=== PATIENT | female | born 1990 | race Caucasian/White ===

== ENCOUNTER 2016-11-10 14:45 | Emergency (ER) | payer BC ==
[2016-11-10 15:31] VITALS: BP 117/57
--- NOTE | 2016-11-10 15:54 | UC ---
Throat Pain/Nasal Cesar HPI - HPI Summary HPI Summary: ONE WEEK OF COUGH SORE THROAT CONGESTION HOARSE VOICE. NO FEVER. - History of Current Complaint Chief Complaint: UCRespiratory Stated Complaint: SORE THROAT AND COUGH Time Seen by Provider: 11/10/16 15:03 Hx Obtained From: Patient Hx Last Menstrual Period: 10/21/16 Onset/Duration: Gradual Onset, Lasting Weeks, Still Present Severity: Mild Pain Intensity: 0 Pain Scale Used: 0-10 Numeric Cough: Productive Associated Signs & Symptoms: Positive: Hoarseness, Sinus Discomfort, Nasal Discharge - Epiglottits Risk Factors Epiglottis Risk Factors: Negative - Allergies/Home Medications Allergies/Adverse Reactions: Allergies Allergy/AdvReac Type Severity Reaction Status Date / Time No Known Allergies Allergy Verified 11/10/16 15:06 Home Medications: Home Medications Escitalopram Oxalate [Lexapro 20 mg] 20 mg PO DAILY 11/10/16 [History Confirmed 11/10/16] PMH/Surg Hx/FS Hx/Imm Hx Previously Healthy: Yes Endocrine History Of: Denies: Diabetes Cardiovascular History Of: Denies: Hypertension Respiratory History Of: Reports: Bronchitis Denies: Pulmonary Embolism GI/ History Of: Denies: Ulcer Neurological History Of: Denies: Migraine Psychological History Of: Denies: Schizophrenia Cancer History Of: Denies: Lung Cancer Other History Of: Negative For: HIV - Surgical History Surgical History: Yes Surgery Procedure, Year, and Place: RIGHT WRIST PINS - Family History Known Family History: Positive: Hypertension, Diabetes - Social History Occupation: Employed Full-time Alcohol Use: Occasionally Substance Use Type: None Smoking Status (MU): Never Smoked Tobacco - Immunization History Most Recent Influenza Vaccination: not this season Review of Systems Constitutional: Negative Skin: Negative Eyes: Negative ENT: Sore Throat, Nasal Discharge Respiratory: Cough Cardiovascular: Negative Gastrointestinal: Negative Genitourinary: Negative Motor: Negative Neurovascular: Negative Musculoskeletal: Negative Neurological: Negative Psychological: Negative All Other Systems Reviewed And Are Negative: Yes Physical Exam Triage Information Reviewed: Yes Appearance: No Pain Distress, Well-Nourished, Ill-Appearing - MILDLY Vital Signs: Initial Vital Signs Temp 98.7 F 11/10/16 15:07 Pulse 54 11/10/16 15:07 Resp 20 11/10/16 15:07 BP 117/57 11/10/16 15:07 Pulse Ox 100 11/10/16 15:07 Vital Signs Reviewed: Yes Eye Exam: Normal ENT: Positive: Pharyngeal erythema, TM bulging, TM dull, Tonsillar swelling Dental Exam: Normal Neck exam: Normal Neck: Positive: Supple, Nontender, No Lymphadenopathy Respiratory Exam: Normal Respiratory: Positive: Chest non-tender, Lungs clear, Normal breath sounds, No respiratory distress, No accessory muscle use Cardiovascular Exam: Normal Cardiovascular: Positive: RRR, No Murmur, Pulses Normal, Brisk Capillary Refill Abdominal Exam: Normal Musculoskeletal Exam: Normal Neurological Exam: Normal Psychological Exam: Normal Skin Exam: Normal Throat Pain/Nasal Course/Dx - Differential Dx/Diagnosis Differential Diagnosis/HQI/PQRI: Pharyngitis, Sinusitis, Tonsillitis, URI Provider Diagnoses: SINUSITIS; UPPER RESPIRATORY INFECTION Discharge - Discharge Plan Condition: Stable Disposition: HOME Prescriptions: Amoxicillin/Clavulanate TAB* [Augmentin TAB 875*] 875 mg PO BID #20 tab Benzonatate CAP* [Tessalon 100 MG CAP*] 100 mg PO TID #15 cap Patient Education Materials: Sinusitis (ED), Upper Respiratory Infection (ED) Referrals: Melly Echeverria, RADIOLOGIC ELECTRONIC SPECIALIST [Primary Care Provider] -
== END 2016-11-10 15:43 | disposition home or self-care (01) ==
LOC: UCCORT 14:45
DX: J32.9 Chronic sinusitis, unspecified (principal); J06.9 Acute upper respiratory infection, unspecified
CPT/HCPCS: 87651; 99212; G0463

== ENCOUNTER 2017-07-16 11:14 | Emergency (ER) | payer BC ==
[2017-07-16 12:20] VITALS: BP 114/73
--- NOTE | 2017-07-16 12:38 | UC ---
Respiratory Complaint HPI - HPI Summary HPI Summary: 27F presents with cough for three weeks. She states the cough has gotten worst. She admits to chest tightness when she coughs and SOB. She has not tried anything for the cough. She denies any abdominal pain. She has had fever. She admits to occasionally sore throat. She denies any abdominal pain, ear pain, sinus congestion, n/v. - History of Current Complaint Chief Complaint: UCRespiratory Stated Complaint: COUGH Hx Last Menstrual Period: 07/05/17 Pain Intensity: 0 - Allergies/Home Medications Allergies/Adverse Reactions: Allergies Allergy/AdvReac Type Severity Reaction Status Date / Time No Known Allergies Allergy Verified 07/16/17 12:13 PMH/Surg Hx/FS Hx/Imm Hx Endocrine History: Other Other Endocrine History: no DM Respiratory History: Other Other Respiratory History: no asthma Other History Of: Negative For: HIV - Surgical History Surgical History: Yes Surgery Procedure, Year, and Place: RIGHT [facility] - Family History Known Family History: Positive: Hypertension, Diabetes - Social History Alcohol Use: Occasionally Substance Use Type: None Smoking Status (MU): Never Smoked Tobacco - Immunization History Most Recent Influenza Vaccination: not this season Review of Systems Constitutional: Fever Respiratory: Shortness Of Breath, Cough Cardiovascular: Negative All Other Systems Reviewed And Are Negative: Yes Physical Exam Triage Information Reviewed: Yes Appearance: Well-Appearing Vital Signs: Initial Vital Signs Temp 98.1 F 07/16/17 12:14 Pulse 52 07/16/17 12:14 Resp 16 07/16/17 12:14 BP 114/73 07/16/17 12:14 Pulse Ox 100 07/16/17 12:14 Vital Signs Reviewed: Yes Eye Exam: Normal ENT: Positive: Normal ENT inspection, Pharynx normal, TMs normal Neck: Positive: Supple, Nontender, No Lymphadenopathy Respiratory: Positive: Normal breath sounds, Wheezing - mild Cardiovascular: Positive: RRR Abdomen Description: Positive: Nontender, Soft Bowel Sounds: Positive: Present Musculoskeletal Exam: Normal Neurological Exam: Normal Psychological Exam: Normal Skin Exam: Normal UC Diagnostic Evaluation - Laboratory O2 Sat by Pulse Oximetry: 100 - Radiology Xray Interpretation: No Acute Changes Radiology Interpretation Completed By: Radiologist Respiratory Course/Dx - Course Course Of Treatment: BrisaF presents with cough for three weeks. She states the cough has gotten worst. She admits to chest tightness when she coughs and SOB. She has not tried anything for the cough. She denies any abdominal pain. She has had fever. She admits to occasionally sore throat. She denies any abdominal pain, ear pain, sinus congestion, n/v. on exam mild wheezing. chest xray normal. will treat with tessalon, prednisone, and inhaler. patient understand and agrees with plan. - Differential Dx/Diagnosis Differential Diagnosis/HQI/PQRI: Bronchitis, Influenza, Lower Resp Infection Provider Diagnoses: bronchitis Discharge - Discharge Plan Condition: Good Disposition: HOME Prescriptions: Albuterol HFA INHALER* [Ventolin HFA Inhaler*] 1 puff INH Q4H PRN #1 mdi PRN Reason: Cough Benzonatate CAP* [Tessalon 100 MG CAP*] 100 mg PO TID #21 cap predniSONE TAB* [Deltasone TAB*] 40 mg PO DAILY #10 tab Patient Education Materials: Acute Bronchitis (ED) Referrals: Non Staff,Doctor [Primary Care Provider] - Additional Instructions: Use Tessalon three times a day for cough Use inhaler one puff every 4 hours for cough as needed Take steroid once a day for 5 days Use humidifier or place warm bowls of water around the room for cough Cough can last up to 4 weeks Follow up with primary care physician in 5 days Return to ED if develop any new or worsening symptoms
--- NOTE | 2017-07-16 12:41 | RAD ---
INDICATION: Cough. COMPARISON: There are no prior studies available for comparison. TECHNIQUE: Dual-energy PA and lateral views of the chest were obtained. FINDINGS: The heart is within normal limits in size. Mediastinal and hilar contours appear within normal limits. The lungs are clear. No pleural effusion is present. IMPRESSION: NO EVIDENCE FOR ACTIVE CARDIOPULMONARY DISEASE.
== END 2017-07-16 13:04 | disposition home or self-care (01) ==
LOC: UCCORT 11:14
DX: J40 Bronchitis, not specified as acute or chronic (principal)
CPT/HCPCS: 71046; 99212; G0463